=== PATIENT | female | born 1945 | race African-American/Black ===

== ENCOUNTER 2018-02-08 21:05 | Observation (INO) ==
[2018-02-08] MEDS ORDERED: SODIUM CHLORIDE 0.9% 1,000 ML IV STA (23:03)
[2018-02-08] MEDS ORDERED: ONDANSETRON 4 MG/2 ML VIAL IV STA (23:03)
[2018-02-09 00:08] LABS: Basophils % 0.2 % (0.0-0.8); Eosinophils % 0.5 % (0.00-10.9); Hematocrit 33.5 VOL% (35.7-47.0); Hemoglobin 10.2 GM/DL (12.0-16.0); Immature Granulocytes % 0.4 %; Immature Granulocytes Absolute 0.03 #; Lymphocytes # 1.5 10*3/uL (1.4-4.0); Lymphocytes % 18.1 % (21.3-54.2); Mean Corpuscular HGB Conc 30.4 GM/DL (32-36); Mean Corpuscular Hemoglobin 29 PG (27-34); Mean Corpuscular Volume 93.8 FL (87-102); Mean Platelet Volume 11.6 FL (9.6-12.0); Monocytes % 11.8 % (1.7-12.7); Neutrophils # 5.8 10*3/uL (1.4-7.4); Platelet Count 181 T/CUMM (130-400); Red Blood Count 3.57 MC/CUMM (3.8-5.5); Red Cell Distribution Width 14.6 % (9.3-17.3); White Blood Count 8.4 T/CUMM (4-12)
[2018-02-09 00:23] LABS: Apearance,Urine CLEAR (Clear); Bilirubin,Urine Negative (Negative); Blood, Urine Negative (Negative); Glucose,Urine (UA) Negative (Negative); Ketones,Urine 5 mg/dL (Negative); Nitrite,Urine Negative (Negative); Protein,Urine Negative; RBC,Urine <1 /HPF (0-4); Squamous Epithelial Cell,Urine Occasional /HPF (0-10); Urine Color Yellow (Yellow); Urine Specific Gravity 1.015 (1.001-1.035); Urine Urobilinogen < 2.0 EU/DL (0.2-1.0); WBC,Urine 5 /HPF (0-6)
[2018-02-09 00:28] LABS: Albumin 3.9 G/DL (3.4-5.0); Bilirubin,Total 0.7 MG/DL (0.2-1.0); Calcium 10.1 MG/DL (8.5-10.1); Potassium 4.6 MMOL/L (3.5-5.1); Total Protein 8.8 G/DL (6.4-8.3)
[2018-02-09] MEDS ORDERED: ONDANSETRON 4 MG/2 ML VIAL IV PRN (05:11)
[2018-02-09] MEDS ORDERED: hydrALAZINE 20 MG/1 ML VIAL IV PRN (05:46)
[2018-02-09] MEDS: SODIUM CHLORIDE 0.9% 1,000 ML IV SCH ×3 (06:25→22:37)
[2018-02-09] MEDS ORDERED: ONDANSETRON ODT 4 MG TABLET PO PRN (09:17)
[2018-02-09] MEDS ORDERED: LISINOPRIL 10 MG TABLET PO SCH (09:30)
[2018-02-09] MEDS: COLCHICINE 0.6 MG TABLET PO SCH ×2 (12:47→21:25)
[2018-02-09] MEDS: CITALOPRAM 20 MG TABLET PO SCH (12:47)
[2018-02-09] MEDS: FUROSEMIDE 20 MG TABLET PO SCH (12:48)
[2018-02-09] MEDS: OXYBUTYNIN 5 MG TABLET PO SCH ×2 (12:48→21:25)
[2018-02-09] MEDS: PANTOPRAZOLE 40 MG TABLET PO SCH (12:48)
[2018-02-09] MEDS: ALLOPURINOL 100 MG TABLET PO SCH (12:48)
[2018-02-09] MEDS: BRIMONIDINE 0.15% OPH SOLN 1 DROP/DROPS BOTTLE BOTH EYES SCH ×2 (12:48→22:13)
[2018-02-09] MEDS: POTASSIUM CHLORIDE 10 MEQ TABLET PO SCH ×2 (12:48→21:25)
[2018-02-09] MEDS ORDERED: ALBUTEROL SULFATE RESP TX PRN (13:00)
[2018-02-09] MEDS ORDERED: CARBIDOPA/LEVODOPA 25-100 MG TABLET PO SCH (21:00)
[2018-02-09] MEDS ORDERED: MONTELUKAST 10 MG TABLET PO SCH (21:00)
[2018-02-09] MEDS: TRAVOPROST 0.004% OPH SOLN 2.5 ML BOTTLE BOTH EYES SCH (22:13)
[2018-02-10 05:10] LABS: Basophils % 0.2 % (0.0-0.8); Eosinophils # 0.1 10*3/uL (0.0-0.87); Eosinophils % 2.1 % (0.00-10.9); Hematocrit 25.5 VOL% (35.7-47.0); Hemoglobin 7.7 GM/DL (12.0-16.0); Immature Granulocytes % 0.6 %; Immature Granulocytes Absolute 0.03 #; Lymphocytes # 1.7 10*3/uL (1.4-4.0); Lymphocytes % 31.8 % (21.3-54.2); Mean Corpuscular HGB Conc 30.2 GM/DL (32-36); Mean Corpuscular Hemoglobin 29 PG (27-34); Mean Corpuscular Volume 95.5 FL (87-102); Mean Platelet Volume 11.7 FL (9.6-12.0); Monocytes # 0.7 10*3/uL (0.11-0.8); Monocytes % 13.9 % (1.7-12.7); Neutrophils # 2.7 10*3/uL (1.4-7.4); Neutrophils % 51.4 % (38.7-73.9); Platelet Count 147 T/CUMM (130-400); Red Blood Count 2.67 MC/CUMM (3.8-5.5); Red Cell Distribution Width 14.9 % (9.3-17.3); White Blood Count 5.3 T/CUMM (4-12)
[2018-02-10 05:22] LABS: Calcium 8.4 MG/DL (8.5-10.1); Osmolality,Calculated 287.3 MOS/KG (273-304); Potassium 4.5 MMOL/L (3.5-5.1)
[2018-02-10] MEDS ORDERED: LEVOTHYROXINE 100 MCG TABLET PO SCH (07:00)
[2018-02-10] MEDS: CITALOPRAM 20 MG TABLET PO SCH (09:00)
[2018-02-10] MEDS: COLCHICINE 0.6 MG TABLET PO SCH (09:00)
[2018-02-10] MEDS: OXYBUTYNIN 5 MG TABLET PO SCH (09:00)
[2018-02-10] MEDS: PANTOPRAZOLE 40 MG TABLET PO SCH (09:00)
[2018-02-10] MEDS: POTASSIUM CHLORIDE 10 MEQ TABLET PO SCH (09:00)
[2018-02-10] MEDS: FUROSEMIDE 20 MG TABLET PO SCH (09:00)
[2018-02-10] MEDS: BRIMONIDINE 0.15% OPH SOLN 1 DROP/DROPS BOTTLE BOTH EYES SCH (09:01)
[2018-02-10] MEDS: TRAVOPROST 0.004% OPH SOLN 2.5 ML BOTTLE BOTH EYES SCH (09:01)
[2018-02-10] MEDS: ALLOPURINOL 100 MG TABLET PO SCH (09:01)
[2018-02-10 11:06] LABS: Hematocrit 26.7 VOL% (35.7-47.0); Hemoglobin 8.2 GM/DL (12.0-16.0)
[2018-02-10] MEDS: SODIUM CHLORIDE 0.9% 1,000 ML IV SCH (11:07)
[2018-02-10 12:11] LABS: % Iron Saturation 10.6 % (18-50); Ferritin 132.9 ng/ml (8-252)
[2018-02-10 15:30] VITALS: BP 106/60
[2018-02-15 10:26] LABS: Vitamin A, S 26.3 mcg/dL (32.5-78.0)
== END 2018-02-10 15:44 | disposition home or self-care (01) ==
LOC: N.ED 21:05 → N.EDINP 21:05 → SUATTDRO 02-09 05:10 → N.3E 02-09 05:48
PROVIDERS: ADMIT Phlebology; ATTEND Hospitalist